=== PATIENT | female | born 1945 | race Caucasian/White ===

== ENCOUNTER 2019-07-23 07:55 | Outpatient (RCR) | payer MEDICARE, BC, SELFPAY ==
--- NOTE | 2019-07-23 09:29 | PTOPEVAL ---
INITIAL PHYSICAL THERAPY EVALUATION and PLAN OF CARE Thank you for referring Ana María to [facility]. Ana María will be seen 2x/wk x 4 weeks in PT. Please review, sign, date and return this plan of care DARCI. I agree with and certify that the following plan of care is medically necessary. Referring Physician Date Admitting Provider: Attending Provider: Nelson Crespo, Referring Provider: *PT Outpatient Evaluation Start: 07/23/19 08:10 Freq: Status: Active Protocol: Document 07/23/19 08:10 CARLTON (Rec: 07/23/19 09:29 CARLTON [id number]) Therapy Assessment Status Assessment Status Assessment Status Evaluation Outpatient Past Medical History Neurological History Hx Neurological Disorders No Significant History Cardiovascular History Hx Hypercholesterolemia Yes Hx Hypertension Yes Respiratory History Hx Chronic Obstructive Pulmonary Disease Yes (COPD) Hx Emphysema Yes Hx Other Respiratory Disorders Yes: smoker Gastrointestinal History Hx Cholecystectomy Yes Genitourinary History Hx Genitourinary Disorders No Significant History Musculoskeletal History Hx Musculoskeletal Disorders No Significant History Endocrine History Hx Diabetes Yes: type 2 HEENT History Hx Cataracts Yes Reproductive History Hx Hysterectomy Yes: 1978 Evaluation Information Problem Diagnosis LE weakness, balance disturbance Subjective Information Has had LE weakness in the Query Text:As Reported By Patient/ past - has had PT in the past Family Tingling sensation in her feet. When takes Metformin - when doesn't have enough carbs in her - feel wobbly and dizzy Uses railing on stairs Has PurePredictive nithin on tablet - does home exercise program No falls Has massage table for exercises Has treadmill - hasn't used it for awhile - usually would use 20 min - 5 miles Prior Level of Function Activity Level (Last 3 Months) Hand Dominance Right Medications Home Meds (Include: OTC, RX, Vitamins, atenolol, losartan potassium, Herbals, Dose, Route,and Frequency) amlodipine besylate, metformin Query Text:Home Med Entries Will No ER, Anoro ellipta AER Longer Recall From Past Visits. Home Meds Must Be Re-entered With Each Visit. Home Setting Home Type House,Multiple Levels Environmental Barriers Railing, A
--- NOTE | 2019-07-25 10:59 | PCPTNOTE ---
Ana María called & cancelled scheduled appointment for Tuesday - July as well as next week due to self quarantine for COVID 19 virus. Will resume PT week of August 06, 2019.
--- NOTE | 2019-08-22 10:07 | PCPTNOTE ---
PHYSICAL THERAPY DISCHARGE NOTE Admitting Provider: Attending Provider: Nelson Crespo, Patient:Ana María Siddiqui Date of :1945 Ana María has not returned for any further treatments since 07/23/2019, therefore she will be discharged at this time. Patient?s initial visit was on 07/23/2019 and that was the only visit she attended due to COVID 19 situation. The goals have not been met. Thank you for referring Ana María to [facility]. Please review, sign, date and return this discharge summary DARCI. I have been updated about Ana María's current status and I agree with discharge from the above service at this time. Referring Physician Date
== END 2019-10-21 23:59 | disposition home or self-care (01) ==
LOC: ANHHIPT 07:55
PROVIDERS: PCP Internal Medicine; Visit Provider Internal Medicine
DX: R26.9 Unspecified abnormalities of gait and mobility (principal); M62.81 Muscle weakness (generalized)
CPT/HCPCS: 97110; 97161

== ENCOUNTER → 2020-05-22 08:06 | Outpatient (CLI) | payer MEDICARE, BC, SELFPAY ==
--- NOTE | ~2020-05-22 | CT_ITS ---
EXAMINATION: CT lung screening DATE: 05/22/2020 08:22 INDICATION: Personal history of nicotine dependence, current smoker with 50 pack year history TECHNIQUE: Computed tomography (CT) of the chest was performed without intravenous contrast. The dose -length product (DLP) was 42.66 mGy-cm. Automated exposure control and iterative reconstruction techn Bunndleue were employed. COMPARISON: 05/30/2019 FINDINGS: There is a new 6 mm nodule of the left upper lobe on image 42. A stable 1.3 cm nodule of th e left upper lobe with eccentric calcification is again noted. There is also a stable 4 mm nodule of the left upper lobe on image 31. There is moderate emphysema. No focal airspace opacities are identif ied. There is no pleural effusion or pneumothorax. Mild dependent atelectasis is noted. No pathologic ally enlarged thoracic lymph nodes are identified. The heart size is normal. Calcified right hilar ly mph nodes are consistent with old granulomatous disease. The gallbladder is surgically absent. There is severe thoracic spondylosis. A stable left adrenal adenoma is noted. IMPRESSION: 1. Lung-RADS category 4A: Findings for which additional diagnostic testing and/or tissue sampling is recommended. Low-dose chest CT in three months is recommended. Reviewed, dictated and finalized at location A. UTIVE ASSOCIATE IMPRESSION: 1. Lung-RADS category 4A: Findings for which additional diagnostic testing and/ or tissue sampling is recommended. Low-dose chest CT in three months is recomme nded.
== END ==
PROVIDERS: PCP Internal Medicine; Visit Provider Nurse Practitioner Family
DX: Z12.2 Encounter for screening for malignant neoplasm of respiratory organs (principal); Z87.891 Personal history of nicotine dependence; R91.8 Other nonspecific abnormal finding of lung field
CPT/HCPCS: 71271

== ENCOUNTER 2020-08-11 12:36 | Outpatient (CLI) | payer MEDICARE, BC, SELFPAY ==
--- NOTE | ~2020-08-11 | CT_ITS ---
EXAMINATION: CT diagnostic chest wo con EXAM DATE: 08/11/2020 12:56 INDICATION: R91.1 - Solitary pulmonary nodule. TECHNIQUE: Spiral CT of the chest without contrast. Axial, coronal and sagittal images were reviewe d. Coronal maximum intensity pixel images of chest reviewed. The dose-length product (DLP) for this examination was 62.04 mGy-cm. The exposure was tailored according to patient size (auto mA exposure control), and iterative reconstruction (ASIR) was used as additional dose reduction technique. Mikie rison is made to prior examination from 05/22/2020. FINDINGS: There is moderate emphysema and hyperinflation. Again there is lobulated left upper lobe a nterior segmental nodule with a 2 mm calcification, nodule measuring 1.3 unchanged compared to most r ecent prior study. There is an extra lobulation which does appear to touch the pleura which appears n ew compared to 2019. There has been very slow interval growth in this going back to CT from 2014 wher e it measured approximately 11 mm. Most likely benign finding but difficult to completely exclude slo w-growing malignancy. Previously reported left upper lobe 6 mm nodule has nearly resolved, the larges t of several previously reported granulomas. There are no pleural or pericardial effusions. Tracheobronchial tree is patent. There is no media stinal, hilar or axillary lymphadenopathy. There is no pneumothorax. Heart normal in size. Ther e is mild coronary arterial calcification, arterial sclerosis. Left adrenal hyperplasia or adenomas. There are cholecystectomy clips. There is mild thoracic spondylosis without osteoblastic or osteol ytic lesions identified. IMPRESSION: Left upper lobe nodule unchanged compared to May but has been demonstrating slow inte rval growth compared to 2015. Most likely benign but low-grade malignancy not excludable. This was pr eviously PET negative. Consider CT-guided biopsy. Reviewed, dictated and finalized at location A. IMPRESSION: Left upper lobe nodule unchanged compared to May but has been d emonstrating slow interval growth compared to 2014. Most likely benign but low- grade malignancy not excludable. This was previously PET negative. Consider CT- guided biopsy.
== END 2020-08-11 12:37 | disposition home or self-care (01) ==
PROVIDERS: PCP Internal Medicine; Visit Provider Nurse Practitioner Family
DX: R91.1 Solitary pulmonary nodule (principal)
CPT/HCPCS: 71250

== ENCOUNTER → 2020-08-29 01:02 | Outpatient (CLI) | payer MEDICARE, BC, SELFPAY ==
[2020-08-29 21:02] LABS: SARS-CoV-2 RNA PCR Negative
== END ==
PROVIDERS: PCP Internal Medicine; Visit Provider Nurse Practitioner Family
DX: Z01.812 Encounter for preprocedural laboratory examination (principal); Z20.822 Contact with and (suspected) exposure to COVID-19
CPT/HCPCS: C9803; U0003; U0005

== ENCOUNTER 2020-09-02 09:00 | Outpatient (CLI) | payer MEDICARE, BC, SELFPAY ==
[2020-08-27 11:45] VITALS: BMI 19.8
[2020-09-02] VITALS (11 sets, daily range): BP systolic 148–208; BP diastolic 80–100; PULSE 54–72; RESP 16–18; O2SAT 92–98
--- NOTE | ~2020-09-02 | XR_ITS ---
EXAMINATION: XR chest 1V DATE: 09/02/2020 11:25 INDICATION: Left lung nodule status post percutaneous biopsy. TECHNIQUE: A single frontal view of the chest was obtained. COMPARISON: Chest CT 08/11/2020 FINDINGS: There are lucencies in the lungs, consistent with emphysema. There is a nodule in left lowe r lung zone. No pleural effusion. There is a small left pneumothorax. The heart size is normal. There are surgical clips in right abdomen. IMPRESSION: 1. Small left pneumothorax. 2. Nodule in left lower lung zone suspicious for primary bronchogenic carcinoma. 3. Emphysema. Reviewed, dictated and finalized at location A. IMPRESSION: 1. Small left pneumothorax. 2. Nodule in left lower lung zone suspicious for primary bronchogenic carcinoma . 3. Emphysema.
--- NOTE | ~2020-09-02 | XR_ITS ---
EXAMINATION: XR chest 1V portable DATE: 09/02/2020 12:29 INDICATION: Left lung nodule status post percutaneous biopsy. TECHNIQUE: A single frontal view of the chest was obtained. COMPARISON: Chest single view at 12:29 PM FINDINGS: There are lucencies in the lungs, consistent with emphysema. There is a nodule in left lowe r lung zone. There is mild atelectasis at left lung base. There is a small left apical pneumothorax. No pleural effusion. The heart size is normal. IMPRESSION: 1. Small left apical pneumothorax with interval improvement. 2. Nodule in left lower lung zone suspicious for primary bronchogenic carcinoma. 3. Emphysema. Reviewed, dictated and finalized at location A. IMPRESSION: 1. Small left apical pneumothorax with interval improvement. 2. Nodule in left lower lung zone suspicious for primary bronchogenic carcinoma . 3. Emphysema.
--- NOTE | ~2020-09-02 | XR_ITS ---
EXAMINATION: XR chest 1V portable DATE: 09/02/2020 14:36 INDICATION: Left lung nodule status post percutaneous biopsy. TECHNIQUE: A single frontal view of the chest was obtained. COMPARISON: Chest single view at 12:29 PM FINDINGS: There are lucencies in the lungs, consistent with emphysema. There is a nodule in left lowe r lung zone. There is mild atelectasis at left lung base. There is a small left pneumothorax. No pleu ral effusion. The heart size is normal. IMPRESSION: 1. Nodule in left lower lung zone suspicious for primary bronchogenic carcinoma. 2. Stable small left pneumothorax. The patient is asymptomatic and will be sent home with instruction s to return to the emergency department if she develops shortness of breath or chest pain. 3. Emphysema. Reviewed, dictated and finalized at location A. IMPRESSION: 1. Nodule in left lower lung zone suspicious for primary bronchogenic carcinoma . 2. Stable small left pneumothorax. The patient is asymptomatic and will be sent home with instructions to return to the emergency department if she develops s hortness of breath or chest pain. 3. Emphysema.
--- NOTE | ~2020-09-02 | CT_ITS ---
EXAMINATION: CT biopsy lung w/imaging DATE: 09/02/2020 11:19 INDICATION: Left lung upper lobe nodule. TECHNIQUE: The procedure including the risks, benefits, and alternatives and possibility of chest tub e placement were discussed with the patient. Risks discussed included infection, approximately 1/20 r isk of symptomatic hemorrhage beyond mild hemoptysis, approximately 1/3 risk of pneumothorax, approxi mately 1/10 risk of pneumothorax severe enough to warrant chest tube placement, and rarely . The patient understood the risks and agreed to proceed. The patient was placed supine oblique with the l eft side up. The skin overlying the left lung was prepped and draped in sterile fashion. Anesthetic was administered with 1% lidocaine subcutaneously. A 19 gauge outer needle was advanced under CT gu idance to the lesion of interest. A 20 gauge core biopsy needle was then used to obtain 3 core biopsy specimens. The needle was removed and the entry site was cleaned and dressed. The mA was adjusted ac cording to patient size. Iterative reconstruction technique was employed. The dose-length product was 325.32 mGy-cm. There were no immediate complications. FINDINGS: CT images demonstrate the outer needle tip adjacent to a 14 mm nodule with punctate central calcification in left upper lobe. There is moderate emphysema. IMPRESSION: 1. CT-guided core needle biopsy of a 14 mm left upper lobe nodule. Reviewed, dictated and finalized at location A.
[2020-09-02 09:35] LABS: Mean Platelet Volume 11.5 fl (7.4-10.4); Platelet Count Result 268 k/mm3 (150-375)
[2020-09-02 09:53] LABS: INR 0.9; Prothrombin Time 12.7 Seconds (11.1-14.7)
--- NOTE | 2020-09-02 15:52 | SUR.PHASEII ---
[id number] dr hudson called to report finding on last chest xray, small pneumothorax noticed but remains stable since first chest xray. pt is stable with minimal pain at incision site, pt doing well on room air, bp remains elevated sine prior to procedure, pt will take bp meds this evening.
== END 2020-09-02 15:05 | disposition home or self-care (01) ==
PROVIDERS: Radiology Diagnostic Radiology; PCP Internal Medicine; Visit Provider Nurse Practitioner Family
DX: R91.1 Solitary pulmonary nodule (principal)
CPT/HCPCS: 32408; 36415; 71045; 85049; 85610; 88305

== ENCOUNTER 2021-04-20 08:01 | Outpatient (CLI) | payer MEDICARE, BC, SELFPAY ==
--- NOTE | ~2021-04-20 | US_ITS ---
EXAMINATION: US art doppler w amor VAZQUEZ EXAM DATE: 04/20/2021 09:03 INDICATION: Peripheral arterial disease. TECHNIQUE: Segmental pressures and plethysmographic and Doppler waveforms of the brachial and lower e xtremity arteries were obtained. There is no prior study for comparison. FINDINGS: Right and left brachial artery pressures of 115 mm Hg and 128 mm Hg, respectively, are concordant (no rmal difference <= 30 mmHg). The right and left thigh-brachial pressure indices are 0.55, 0.59, resp ectively (normal > 1.2). RIGHT LEG: The ankle-brachial index (KETAN) is 0.33 (normal >= 0.9-1). The great toe-brachial index (TBI) is 0.30 (normal >= 0.65). The lower extremity ratios, segmental pressure gradients as follows; Proximal superficial femoral artery:- 0.55 (70 mmHg). Distal superficial femoral artery: ----- 0.51 (65 mmHg). Popliteal: 0.53 (68 mmHg). Dorsalis pedis: 0.16 (21 mmHg). Posterior tibial: 0.33 (44 mmHg). (Normal gradients <= 20-30 mmHg between adjacent levels on the same leg or the same levels on the two legs). Arterial waveforms are monophasic. LEFT LEG: The ankle-brachial index (KETAN) is 0.45 (normal >= 0.9-1). The great toe-brachial index (TBI) is 0.55 (normal >= 0.65). The lower extremity ratios, segmental pressure gradients as follows; Proximal superficial femoral artery:- 0.59 (76 mmHg). Distal superficial femoral artery: ----- 0.48 (61 mmHg). Popliteal: 0.39 (50 mmHg). Dorsalis pedis: 0.38 (48 mmHg). Posterior tibial: 0.45 (58 mmHg). (Normal gradients <= 20-30 mmHg between adjacent levels on the same leg or the same levels on the two legs). Arterial waveforms are monophasic. IMPRESSION: 1. Right ankle-brachial index 0.33, moderate to severely decreased. 2. Left ankle-brachial index 0.45, moderately decreased. 3. Lower than expected thigh brachial indices could indicate inflow stenosis. Reviewed, dictated and finalized at location B. 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
== END 2021-04-20 08:02 | disposition home or self-care (01) ==
PROVIDERS: PCP Internal Medicine; Visit Provider Internal Medicine
DX: I73.9 Peripheral vascular disease, unspecified (principal)
CPT/HCPCS: 93923

== ENCOUNTER → 2021-11-19 10:15 | Outpatient (CLI) | payer MEDICARE, BC, SELFPAY ==
--- NOTE | ~2021-11-19 | CT_ITS ---
EXAMINATION: CT diagnostic chest wo con DATE: 11/19/2021 10:49 INDICATION: Solitary pulmonary nodule TECHNIQUE: Computed tomography (CT) of the chest was performed without intravenous contrast. The dose -length product was 41.44 mGy-cm. Automated exposure control and iterative reconstruction technique w ere employed. COMPARISON: Comparison to multiple prior studies sequentially, with oldest reviewed study dated 05/22. FINDINGS: No thoracic lymphadenopathy. There is atherosclerosis of the aorta. Heart size normal. No s ignificant pleural or pericardial effusion. The upper abdomen is unremarkable. There are cholecystect thee clips. Stable left adrenal adenoma. Severe emphysema. Stable 1.3 cm partially calcified left uppe r lobe nodule. There are a few smaller nodules measuring 2 mm or less in the upper lobes. No endobron chial lesions. No pneumothorax. Mild thoracic spondylosis. IMPRESSION: 1. Stable 1.3 cm left upper lobe nodule which is partially calcified. Recommend follow-up low dose CT chest in 6 months to assess stability. 2: Emphysema. Reviewed, dictated and finalized at location A.
== END ==
PROVIDERS: PCP Nurse Practitioner Family; Visit Provider Nurse Practitioner Family
DX: R91.1 Solitary pulmonary nodule (principal); J43.9 Emphysema, unspecified
CPT/HCPCS: 71250

== ENCOUNTER → 2022-05-06 09:41 | Outpatient (CLI) | payer MEDICARE, BC, SELFPAY ==
--- NOTE | ~2022-05-06 | CT_ITS ---
CT Scan of the Chest without Contrast: Clinical Indication: Pulmonary nodule Technique: Contiguous sections were acquired throughout the chest without intravenous contrast. Dose reduction technique was used on this scan by utilizing automated exposure control and iterative recon struction technique. The dose-length product (DLP) was 39.41 mGy-cm. COMPARISON: 11/19/2021 and 05/24/2018 Findings: There is no evidence of any significant mediastinal, hilar or axillary lymphadenopathy. The mediastin al soft tissues are stable. There is no evidence of pleural or pericardial effusion. Stable 1.3 x 1.3 cm lobulated lingular pulmonary nodule with focal eccentric calcification. No new pu lmonary nodules seen. Moderate to advanced emphysema in the upper lobes noted. Images through the upper abdomen reveal no abnormalities. Impression: Stable lingular pulmonary nodule, as detailed above. Stability since 2019 is compatible with benignit y. Moderate to advanced emphysema in the upper lobes. Reviewed, dictated and finalized at [facility]. T DOUBLE Impression: Stable lingular pulmonary nodule, as detailed above. Stability since 2019 is co mpatible with benignity. Moderate to advanced emphysema in the upper lobes.
== END ==
PROVIDERS: PCP Family Medicine; Visit Provider Nurse Practitioner Family
DX: R91.1 Solitary pulmonary nodule (principal)
CPT/HCPCS: 71250